=== PATIENT | male | born 1985 | race African-American/Black ===

== ENCOUNTER 2020-08-22 09:46 | Emergency (ER) | payer OTHER ==
[~2020-08-22] VITALS: Ht 175.3 cm; Wt 77.1 kg
[2020-08-22 09:47] VITALS: BP 143/73
--- NOTE | 2020-08-22 09:47 | NUR ---
0940--PT ABHAY CHP, AMBULATED TO CHAIR C.
--- NOTE | 2020-08-22 10:04 | NUR ---
ERMD EVALUATING PT
--- NOTE | 2020-08-22 10:06 | NUR ---
PT MOVED TO BED 08.
--- NOTE | 2020-08-22 10:34 | NUR ---
PT TAKEN TO CT VIA MANUEL
[2020-08-22 10:57] LABS: BASOPHILS # (AUTO) 0.1 K/uL (0.00-0.22); BASOPHILS % (AUTO) 1.1 % (0.0-2.0); EOSINOPHILS % (AUTO) 0.1 % (0.0-4.0); HEMATOCRIT 40.9 % (36-52); HEMOGLOBIN 14.1 g/dL (12.0-18.0); LYMPHOCYTES % (AUTO) 15.2 % (20.5-51.1); MEAN CORPUSCULAR HEMOGLOBIN 31 pg (27-31); MEAN CORPUSCULAR HGB CONC 35 g/dL (33-37); MEAN CORPUSCULAR VOLUME 88.9 fL (80-94); MONOCYTES # (AUTO) 0.4 K/uL (0.8-1.0); MONOCYTES % (AUTO) 5.7 % (1.7-9.3); NEUTROPHILS # (AUTO) 5.2 K/uL (1.8-7.7); NEUTROPHILS % (AUTO) 77.9 % (42.2-75.2); PLATELET COUNT (AUTO) 193 K/uL (140-450); WHITE BLOOD COUNT (AUTO) 6.6 K/uL (4.8-10.8)
[2020-08-22 11:08] LABS: ALBUMIN 4.4 g/dL (3.4-5.0); ANION GAP 16.2 (8-16); CARBON DIOXIDE 24.6 mmol/L (21-32); POTASSIUM 3.8 mmol/L (3.5-5.1); TOTAL BILIRUBIN 0.7 mg/dL (0.0-1.0)
[2020-08-22] MEDS: ACETAMINOPHEN EXTRA STRENGTH 500 MG TAB PO ONE (14:04)
[2020-08-22] MEDS: KETOROLAC 30 MG/ML VIAL IM ONE (14:04)
--- NOTE | 2020-08-22 14:05 | NUR ---
Patient discharged with v/s stable. Written and verbal after care instructions ABOUT [employer]UR[employer] given and explained. Patient verbalized understanding. Ambulatory with steady gait. All questions addressed prior to discharge. Advised to follow up with PMD.
[2020-08-22 14:06] VITALS: BP 127/69
== END 2020-08-22 14:05 | disposition home or self-care (01) ==
LOC: MED 09:46
DX: M54.2 Cervicalgia (principal); Z02.89 Encounter for other administrative examinations; V98.8XXA Other specified transport accidents, initial encounter; Y93.89 Activity, other specified; Y92.89 Other specified places as the place of occurrence of the external cause; Y99.8 Other external cause status
CPT/HCPCS: 36415; 70450; 71045; 72125; 80053; 85025; 96372; 99285; J1885